=== PATIENT | male | born 1940 | race Caucasian/White ===

== ENCOUNTER 2022-04-18 13:40 | Emergency (ER) | payer MEDICARE, OTHER, SELFPAY ==
[2022-04-18] VITALS (8 sets, daily range): BP systolic 150–184; BP diastolic 66–80; PULSE 52–59; RESP 12–19; TEMP 36.4–36.6; O2SAT 97–99; BMI 26.0
--- NOTE | 2022-04-18 13:51 | EKG12_ITS ---
Test Reason : CP Blood Pressure : / mmHG Vent. Rate : 053 BPM Atrial Rate : 053 BPM P-R Int : 166 ms QRS Dur : 076 ms QT Int : 400 ms P-R-T Axes : -20 016 042 degrees QTc Int : 375 ms Sinus bradycardia Otherwise normal ECG Confirmed by JAMES PEPE, DANIEL ([id number]), managing editor BETI NIEVES ([id number]) on 04/20/2022 9:32:11 AM Referred By: Confirmed By:DANIEL RAMIREZ MD
--- NOTE | 2022-04-18 13:55 | RAD_ITS ---
STUDY: X-RAY CHEST REASON FOR EXAM: Male, 81 years old. Sternal chest pain. TECHNIQUE: Single AP portable view of the chest. COMPARISON: None. FINDINGS: EKG electrodes are seen. The lungs are clear and expanded. There is no demonstrated pleural abnormality. Normal size heart. Normal mediastinum and dedrick. Normal visualized pulmonary arteries. Normal visualized aortic arch and descending thoracic aorta. There are diffuse degenerative changes of the visualized thoracic spine. Metallic clips are seen in the region of the proximal right humeral neck suggestive of prior rotator cuff surgery. There is no demonstrated abnormality of the visualized soft tissue structures of the upper abdomen. RAD/Chest 1 View (Portable) IMPRESSION: No acute abnormality is seen. Electronically Signed: Troy Mac MD at 14:29 EDT ,
[2022-04-18 13:59] LABS: Absolute Lymphocyte Count 0.75 X10^3/uL (0.83-4.51); Absolute Neutrophil Count 3.3 X10^3/uL (2.0-7.7); Basophil# 0.02 X10^3/uL; Basophil% 0.4 % (0-1); Eosinophil# 0.09 X10^3/uL; Hematocrit 44.6 % (40-54); Hemoglobin 14.3 g/dL (13.0-16.5); Lymphocyte # 0.75 X10^3/ul (0.83-4.51); Lymphocyte % 16.5 % (19-41); Mean Corp Hgb Conc 32.1 g/dL (32-36); Mean Corpuscular Hgb 29.9 pg (27.0-32.0); Mean Corpuscular Volume 93.3 fL (80-94); Mean Platelet Vol. 11.4 fl (6.2-12.0); Monocyte# 0.36 X10^3/uL; Monocyte% 7.9 % (0-10); NRBC Flagged by Analyzer 0 % (0-5); Neutrophil % 72.8 % (47-70); Platelet Count 119 K/mm3 (150-450); RBC Distribution Width CV 13.3 % (11.6-14.6); RBC Distribution Width SD 45.8 fl (35.1-43.9); Red Blood Count 4.78 M/mm3 (4.6-6.2); White Blood Count 4.5 K/mm3 (4.4-11.0)
[2022-04-18 14:15] LABS: Anion Gap 7 (5-15); BUN 21 mg/dL (7-18); BUN/Creat Ratio 17.6 RATIO (10-20); Calcium,Total 9.1 mg/dL (8.5-10.1); Chloride 104 mmol/L (98-107); Creatinine, Serum 1.19 mg/dL (0.70-1.30); EST Glomerular Filtration Rate 63 mL/min (>60); Est Glom Filt Rate - Afr Amer 76 mL/min (>60); Glucose 83 mg/dL (74-106); Potassium 4.3 mmol/L (3.5-5.1); Sodium Level 143 mmol/L (136-145); Troponin-I HS (w/2H Reflex) 9 pg/mL (3.0-78.0)
--- NOTE | 2022-04-18 14:18 | ED.VIS.CHEST ---
HPI History of Present Illness Chief Complaint: Chest Pain Narrative Narrative: Patient with past medical history of being a former smoker but quit in the presents with central chest tightness that he has had for few weeks. He states he scheduled for an upper endoscopy because he has gallstones but that is not till May. He has had episodes in the past where she had radiating pain downward and pressure. He describes a sensation as having to burp but he is unable to. He feels substernal chest tightness. He denies any nausea or vomiting. No fevers or chills. No cough. He denies any leg swelling. He states he saw a restorative rehab aide in the past remotely. He presents because of the central chest tightness. No exacerbating or alleviating factors. No exertional component. PFSH PFSH Allergy/AdvReac Type Severity Reaction Status Date / Time No Known Allergies Allergy Verified 04/18/22 13:44 Social History Smoking Status: Never smoker ROS ROS ED ROS Narrative Constitutional: No fever, no chills. HEENT: No sore throat. No neck pain. No loss of vision. No rhinorrhea. Cardiovascular: Positive substernal chest tightness/chest pain. No palpitations. No pedal edema. Respiratory: No cough, no shortness of breath. Abdominal: No abdominal pain. No nausea. No vomiting. Genitourinary: No dysuria. No hematuria. Musculoskeletal: No myalgias. No arthralgias. Neurologic: No headaches. No dizziness. No lightheadedness. Skin: No rash. No change in color. Psychiatric: No depression. No anxiety. EXAM Physical Exam Narrative Exam Narrative: Afebrile. Vital signs noted. HEENT: Normocephalic. Atraumatic. PERRL, EOMI. Neck soft and supple. No point tenderness or step off. Cardiovascular: Regular rate and rhythm. No murmurs, rubs, or gallops appreciated. Respiratory: No tachypnea. Lungs clear to auscultation bilaterally. Gastrointestinal: Abdomen soft, nontender, with normoactive bowel sounds. No rebound or guarding. Neurological: Awake. Alert. Nonfocal, nonlateralizing. Skin: No rash. Normal color. No pallor. Musculoskeletal: No pedal edema. Full range of motion extremities. Const Vital Signs: 04/18/22 13:41 04/18/22 13:43 04/18/22 13:44 Temperature 97.9 F 97.9 F Temperature Source Oral Oral Pulse Rate 56 L 56 L Respiratory Rate 13 13 Respiratory Effort Normal Non-Labored Blood Pressure 177/80 H 177/80 H Blood Pressure Mean 112 112 Pulse Ox 99 99 Oxygen Delivery Method Room Air Room Air 04/18/22 14:53 04/18/22 14:58 04/18/22 15:28 Temperature 97.9 F Temperature Source Oral Pulse Rate 53 L Respiratory Rate 19 H Respiratory Effort Blood Pressure 159/72 H 150/72 H Blood Pressure Mean 98 Pulse Ox 97 98 Oxygen Delivery Method Room Air Room Air 04/18/22 15:28 04/18/22 16:08 04/18/22 16:48 Temperature 97.9 F 97.5 F L Temperature Source Oral Temporal Pulse Rate 52 L 52 L 52 L Respiratory Rate 19 H 12 14 Respiratory Effort Blood Pressure 150/72 H 163/71 H 184/66 H Blood Pressure Mean 98 101 105 Pulse Ox 98 99 99 Oxygen Delivery Method Room Air Room Air Room Air Heart Score History: Slightly/Non-Suspicious ECG: Normal Age: >/= 65 years Risk Factors: 1 or 2 Risk Factors Troponin: </= Normal Limit Score: 3 MDM MDM MDM Narrative Medical decision making narrative: Protocol labs were obtained. EKG demonstrates sinus bradycardia at 53 bpm without ectopy or acute ST changes. No STEMI. This was interpreted by myself. Chest x-ray interpreted by myself shows no acute process. Laboratory work is grossly unremarkable with a normal white count of 4.5, hemoglobin normal at 14.3, hematocrit 44.6. BMP is grossly unremarkable except for BUN of 21 with a creatinine of 1.1. Lipase normal at 97. Initial high-sensitivity troponin negative at 9. Repeat is also 9 for a delta troponin of 0. I do feel that the symptoms and chest pressure he was describing is most likely secondary to GERD. They state that he has started Protonix approximately 1 week ago. He will also use [id number] remedies and follow-up with gastroenterology. I do feel he can be discharged safely home with follow-up. Return instructions to the emergency department were reviewed. Disposition is discharged home in stable condition. Lab Data Attestation: I reviewed the patient's lab results. Labs: Laboratory Results - last 24 hr 04/18/22 04/18/22 04/18/22 13:48 13:48 13:48 WBC 4.5 RBC 4.78 Hgb 14.3 Hct 44.6 MCV 93.3 MCH 29.9 MCHC 32.1 RDW Std Deviation 45.8 H RDW Coeff of Jovani 13.3 Plt Count 119 L MPV 11.4 Immature Gran % (Auto) 0.400 Neut % (Auto) 72.8 H Lymph % (Auto) 16.5 L Sibley % (Auto) 7.9 Eos % (Auto) 2.0 Baso % (Auto) 0.4 Absolute Neuts (auto) 3.3 Absolute Lymphs (auto) 0.75 L Nucleated RBC % 0 Sodium 143 Potassium 4.3 Chloride 104 Carbon Dioxide 32.0 Anion Gap 7 BUN 21 H Creatinine 1.19 Estim Creat Clear Calc 47.90 Est GFR (MDRD) Af Amer 76 Est GFR (MDRD) Non-Af 63 BUN/Creatinine Ratio 17.6 Glucose 83 Calcium 9.1 Troponin I High Sens 9 Lipase 97 04/18/22 16:02 WBC RBC Hgb Hct MCV MCH MCHC RDW Std Deviation RDW Coeff of Jovani Plt Count MPV Immature Gran % (Auto) Neut % (Auto) Lymph % (Auto) Sibley % (Auto) Eos % (Auto) Baso % (Auto) Absolute Neuts (auto) Absolute Lymphs (auto) Nucleated RBC % Sodium Potassium Chloride Carbon Dioxide Anion Gap BUN Creatinine Estim Creat Clear Calc Est GFR (MDRD) Af Amer Est GFR (MDRD) Non-Af BUN/Creatinine Ratio Glucose Calcium Troponin I High Sens 9 Lipase Radiography Diagnostic Testing: Clinical Impression(s) from Imaging Studies Chest X-Ray 04/18/22 13:55 IMPRESSION: No acute abnormality is seen. Electronically Signed: Troy Mac MD at 14:29 EDT , Discharge Plan Triage Chief Complaint: Chest Pain ED Provider: Korey Dsouza Dx/Rx/DC Orders Clinical Impression: Chest pressure, GERD (gastroesophageal reflux disease) Instructions: ED Chest Pain, Uncertain Cause, ED GERD (Adult) Primary Care Provider: Hever Mcmillan Referrals: Provider,Ed Physician [Non-Staff -Ordering Privileges] - Activity Restrictions/Additional Instructions: Follow-up with gastroenterology as scheduled. Continue your Protonix as previously directed. Disposition Disposition: Home, Self Care
[2022-04-18 14:46] LABS: Lipase 97 U/L (73-393)
[2022-04-18 15:56] LABS: Reflex Troponin-HS? (from REC) Y
[2022-04-18 16:35] LABS: Troponin-I HS 9 pg/mL (3.0-78.0)
== END 2022-04-18 17:12 | disposition home or self-care (01) ==
PROVIDERS: Emergency Provider Emergency Medicine; PCP Family Medicine; Visit Provider Emergency Medicine
DX: R07.89 Other chest pain (principal); K21.9 Gastro-esophageal reflux disease without esophagitis; K80.20 Calculus of gallbladder without cholecystitis without obstruction; R00.1 Bradycardia, unspecified; Z87.891 Personal history of nicotine dependence
CPT/HCPCS: 71045; 80048; 83690; 84484; 85025; 93005; 99284; A4216